=== PATIENT | male | born 1940 | race Caucasian/White ===

== ENCOUNTER 2018-04-09 10:27 | Inpatient (IN) | payer MEDICARE, OTHER ==
[~2018-04-09] VITALS: Ht 177.8 cm; Wt 92.6 kg
[~2018-04-09 10:27] MED LIST: HYDR-3237 PO; LANS30CA60 PO; LORA10TA75 PO; LORA1TAB PO
[2018-04-09] MEDS ORDERED: IBUP100T7 PO (10:46)
[2018-04-09] MEDS ORDERED: ACET325C5 PO (10:46)
[2018-04-09] MEDS ORDERED: MELA1TAB35 PO (10:46)
[2018-04-09] MEDS ORDERED: DICL50TA2 PO (10:47)
[2018-04-09] MEDS ORDERED: SODIUM CHLORIDE FLUSH 10ML SYR IVF ONE ×2 (11:30→13:30)
[2018-04-09 11:51] LABS: CHLORIDE 105 mmol/L (98-107)
[2018-04-09 11:52] LABS: ALANINE AMINOTRANSFERASE 68 U/L (12-78); ALBUMIN 3.6 g/dL (3.4-5.0); ANION GAP 7 mmol/L (5-15); CALCIUM 8.8 mg/dL (8.5-10.1); CREATININE 2.26 mg/dL (0.7-1.3)
[2018-04-09 11:54] LABS: ALKALINE PHOSPHATASE 450 U/L (45-117); BILIRUBIN,TOTAL 0.9 mg/dL (0.2-1.0); TOTAL PROTEIN 8.2 g/dL (6.4-8.2)
[2018-04-09 12:40] LABS: MEAN CORPUSCULAR HEMOGLOBIN 20.9 pg (27.5-34.5); MEAN CORPUSCULAR HGB CONC 30.7 g/dL (33.2-36.2); MEAN CORPUSCULAR VOLUME 68.2 fL (81-97); MEAN PLATELET VOLUME 8.1 fL (7.4-10.4); PLATELET COUNT 309 x10^3/uL (130-400); RED BLOOD COUNT 5.98 x10^6/uL (4.38-5.82)
[2018-04-09 12:51] LABS: MICROSCOPIC INDICATED
[2018-04-09 12:54] LABS: CULTURE INDICATED? YES
[2018-04-09 13:10] LABS: BASOPHILS # (AUTO) 0.06 x10^3/uL (0-0.1); BASOPHILS % (AUTO) 0 % (0-1); EOSINOPHILS # (AUTO) 0.29 x10^3/uL (0-0.4); EOSINOPHILS % (AUTO) 2 % (1-7); LYMPHOCYTES # (AUTO) 4.42 x10^3/uL (1-3.4); LYMPHOCYTES % (AUTO) 27 % (22-44); MD MORPH REVIEW ONLY; MONOCYTES # (AUTO) 1.08 x10^3/uL (0.2-0.8); MONOCYTES % (AUTO) 7 % (2-9); NEUTROPHILS # (AUTO) 10.54 x10^3/uL (1.8-6.8); NEUTROPHILS % (AUTO) 64 % (42-75)
[2018-04-09 13:11] LABS: ANISOCYTOSIS 2+; MICROCYTOSIS 1+
[2018-04-09 13:12] LABS: <PLATELET ESTIMATE> INCREASED; HYPOCHROMIA 1+; OVALOCYTES 1+; POLYCHROMASIA 1+
[2018-04-09 13:13] LABS: <PLT MORPHOLOGY> NORMAL PLT MORPH
[2018-04-09] MEDS ORDERED: ONDANSETRON ODT 4 MG ONE (13:13)
[2018-04-09] MEDS ORDERED: MORPHINE SULFATE 4 MG/ML, 1ML ONE ×2 (13:13→14:22)
[2018-04-09] MEDS: MORPHINE SULFATE 4 MG/ML, 1ML IVPush PRN ×2 (13:16→14:25)
[2018-04-09] MEDS ORDERED: ONDANSETRON ODT 4 MG PO ONE (13:30)
[2018-04-09] MEDS ORDERED: SODIUM CHLORIDE 0.9% 1,000ML IVBOLUS ONE (13:30)
[2018-04-09] MEDS ORDERED: PANTOPRAZOLE 40 MG IV ONE (14:40)
[2018-04-09] MEDS ORDERED: PANTOPRAZOLE 40 MG IV IVP ONE (15:00)
[2018-04-09] MEDS: METRONIDAZOLE PMX 500MG/100ML 100 ML IV SCH ×2 (15:30→22:45)
[2018-04-09] MEDS: CEFTRIAXONE 1,000 MG in SODIUM CHLORIDE 0.9% 50 ML IV SCH (15:30)
[2018-04-09] MEDS: PANTOPRAZOLE 80 MG in SODIUM CHLORIDE 0.9% 100 ML IV SCH (16:30)
[2018-04-09] MEDS ORDERED: hydrALAzine 20 MG/ML, 1ML IVPush PRN (16:30)
[2018-04-09] MEDS ORDERED: ONDANSETRON 2MG/ML, 2ML IVPush PRN (16:30)
[2018-04-09] MEDS ORDERED: morphine SULFATE 10 MG/ML, 1ML IVPush PRN (16:30)
[2018-04-09 18:07] VITALS: BP 102/69
[2018-04-09 19:53] VITALS: BP 95/62
[2018-04-09] MEDS: SODIUM CHLORIDE 0.9% 1,000 ML IV SCH (20:30)
[2018-04-10 00:01] VITALS: BP 152/81
[2018-04-10] MEDS: PANTOPRAZOLE 80 MG in SODIUM CHLORIDE 0.9% 100 ML IV SCH ×3 (02:35→23:55)
[2018-04-10 05:16] LABS: ALANINE AMINOTRANSFERASE 125 U/L (12-78); ALBUMIN 3.1 g/dL (3.4-5.0); ANION GAP 8 mmol/L (5-15); CALCIUM 7.9 mg/dL (8.5-10.1); CHLORIDE 107 mmol/L (98-107)
[2018-04-10 05:18] LABS: ALKALINE PHOSPHATASE 425 U/L (45-117); BILIRUBIN,TOTAL 0.9 mg/dL (0.2-1.0); TOTAL PROTEIN 6.9 g/dL (6.4-8.2)
[2018-04-10 05:21] LABS: BASOPHILS # (AUTO) 0.04 x10^3/uL (0-0.1); BASOPHILS % (AUTO) 0 % (0-1); EOSINOPHILS # (AUTO) 0.06 x10^3/uL (0-0.4); EOSINOPHILS % (AUTO) 0 % (1-7); LYMPHOCYTES # (AUTO) 4.16 x10^3/uL (1-3.4); LYMPHOCYTES % (AUTO) 30 % (22-44); MD NO; MEAN CORPUSCULAR HEMOGLOBIN 21.1 pg (27.5-34.5); MEAN CORPUSCULAR HGB CONC 30.7 g/dL (33.2-36.2); MEAN CORPUSCULAR VOLUME 68.7 fL (81-97); MEAN PLATELET VOLUME 8.1 fL (7.4-10.4); MONOCYTES # (AUTO) 1.17 x10^3/uL (0.2-0.8); MONOCYTES % (AUTO) 8 % (2-9); NEUTROPHILS % (AUTO) 61 % (42-75); PLATELET COUNT 275 x10^3/uL (130-400); RED BLOOD COUNT 5.09 x10^6/uL (4.38-5.82); RED CELL DISTRIBUTION WIDTH 21.9 % (9.4-14.8)
[2018-04-10] MEDS: METRONIDAZOLE PMX 500MG/100ML 100 ML IV SCH ×3 (07:30→22:59)
[2018-04-10] MEDS ORDERED: MIDAZOLAM 1 MG/ML, 2ML ONE (09:18)
[2018-04-10] MEDS ORDERED: FENTANYL PF 100 MCG/2ML ONE ×2 (09:18→10:13)
[2018-04-10] MEDS ORDERED: PROPOFOL 10 MG/ML, 20ML ONE (09:24)
[2018-04-10] MEDS ORDERED: GLYCOPYRROLATE 0.2MG/1ML, 5ML ONE (09:24)
[2018-04-10] MEDS ORDERED: NEOSTIGMINE 1 MG/ML, 10ML ONE (09:24)
[2018-04-10] MEDS ORDERED: ROCURONIUM 10 MG/ML,10ML ONE (09:24)
[2018-04-10] MEDS ORDERED: SUCCINYLCHOLINE 20 MG/ML, 10ML ONE (09:24)
[2018-04-10] MEDS: FENTANYL PF 100 MCG/2ML IV PRN ×2 (10:20→10:25)
[2018-04-10] MEDS ORDERED: EPHEDRINE 50 MG/ML, 1ML IVPush PRN (10:30)
[2018-04-10] MEDS ORDERED: PROMETHAZINE 12.5 MG SUPP PR PRN (10:30)
[2018-04-10] MEDS ORDERED: OXYcodone 5 MG/5 ML ORAL.SOL UDC PO PRN (10:30)
[2018-04-10] MEDS ORDERED: PROMETHAZINE 25 MG/ML, 1ML IV PRN (10:30)
[2018-04-10] MEDS ORDERED: ACETAMINOPHEN 325 MG TABLET PO PRN (10:30)
[2018-04-10] MEDS ORDERED: ALBUTEROL SULFATE 2.5 MG/3 ML NPPB PRN (10:30)
[2018-04-10] MEDS ORDERED: LABETALOL 5MG/ML, 20ML IV PRN (10:30)
[2018-04-10] MEDS ORDERED: MORPHINE SULFATE 4 MG/ML, 1ML IVPush PRN (10:30)
[2018-04-10] MEDS ORDERED: KETOROLAC 30 MG/1 ML IV PRN (10:30)
[2018-04-10] MEDS ORDERED: hydrALAzine 20 MG/ML, 1ML IV PRN (10:30)
[2018-04-10] MEDS ORDERED: ONDANSETRON 2MG/ML, 2ML IV PRN (10:30)
[2018-04-10] MEDS ORDERED: LORazepam 2 MG/ML, 1ML IVPush PRN ×2 (10:30→17:00)
[2018-04-10] MEDS ORDERED: MEPERIDINE/PF 25MG/0.5ML IVPush PRN (10:30)
[2018-04-10] MEDS ORDERED: MIDAZOLAM 1 MG/ML, 2ML IV PRN (10:30)
[2018-04-10] MEDS ORDERED: ONDANSETRON ODT 8 MG PO PRN (10:30)
[2018-04-10] MEDS ORDERED: HYDROmorphone 2 MG/ML, 1ML ONE (10:32)
[2018-04-10] MEDS: HYDROmorphone 1 MG/ML, 1ML IV PRN (10:34)
[2018-04-10 11:09] VITALS: BP 110/73
[2018-04-10 12:19] VITALS: BP 124/78
[2018-04-10] MEDS: SODIUM CHLORIDE 0.9% 1,000 ML IV SCH (14:11)
[2018-04-10] MEDS: CEFTRIAXONE 1,000 MG in SODIUM CHLORIDE 0.9% 50 ML IV SCH (18:00)
[2018-04-10 19:10] VITALS: BP 130/78
[2018-04-11 02:14] VITALS: BP 118/86
[2018-04-11 05:54] LABS: BASOPHILS # (AUTO) 0.05 x10^3/uL (0-0.1); BASOPHILS % (AUTO) 0 % (0-1); EOSINOPHILS # (AUTO) 0.07 x10^3/uL (0-0.4); EOSINOPHILS % (AUTO) 0 % (1-7); LYMPHOCYTES # (AUTO) 4.79 x10^3/uL (1-3.4); LYMPHOCYTES % (AUTO) 29 % (22-44); MD NO; MEAN CORPUSCULAR HEMOGLOBIN 21.5 pg (27.5-34.5); MEAN CORPUSCULAR VOLUME 69.2 fL (81-97); MEAN PLATELET VOLUME 8.1 fL (7.4-10.4); MONOCYTES # (AUTO) 1.37 x10^3/uL (0.2-0.8); MONOCYTES % (AUTO) 8 % (2-9); NEUTROPHILS # (AUTO) 9.99 x10^3/uL (1.8-6.8); NEUTROPHILS % (AUTO) 61 % (42-75); PLATELET COUNT 305 x10^3/uL (130-400); RED BLOOD COUNT 5.09 x10^6/uL (4.38-5.82); RED CELL DISTRIBUTION WIDTH 21.6 % (9.4-14.8)
[2018-04-11 06:24] LABS: CHLORIDE 103 mmol/L (98-107)
[2018-04-11 06:37] LABS: ALANINE AMINOTRANSFERASE 85 U/L (12-78); ALBUMIN 3.1 g/dL (3.4-5.0); ALKALINE PHOSPHATASE 371 U/L (45-117); BILIRUBIN,TOTAL 0.8 mg/dL (0.2-1.0); CREATININE 1.81 mg/dL (0.7-1.3); TOTAL PROTEIN 7.1 g/dL (6.4-8.2)
[2018-04-11 06:42] LABS: ANION GAP 12 mmol/L (5-15)
[2018-04-11] MEDS ORDERED: PHARMACOKINETIC MONITORING MC PRN (08:00)
[2018-04-11] MEDS ORDERED: HALOPERIDOL 5 MG/ML IM PRN (08:00)
[2018-04-11] MEDS ORDERED: POTASSIUM PHOSPHATE 22 MEQ in SODIUM CHLORIDE 0.9% 500 ML IV ONE (08:00)
[2018-04-11] MEDS ORDERED: VANCOMYCIN PER PHARMACY MC SCH (08:00)
[2018-04-11] MEDS ORDERED: PHARMACOKINETIC CONSULTATION MC ONE (08:00)
[2018-04-11] MEDS: SODIUM CHLORIDE 0.9% 1,000 ML IV SCH ×2 (08:30→18:15)
[2018-04-11] MEDS: METRONIDAZOLE PMX 500MG/100ML 100 ML IV SCH ×2 (08:30→18:15)
[2018-04-11] MEDS ORDERED: VANCOMYCIN PMX 1GM/200ML 200 ML IV SCH (09:00)
[2018-04-11] MEDS: TAMSULOSIN 0.4 MG CAP.ER.24H PO SCH (09:00)
[2018-04-11] MEDS: VANCOMYCIN 1,500 MG in SODIUM CHLORIDE 0.9% 250 ML IV SCH (10:00)
[2018-04-11] MEDS ORDERED: BUPIVACAINE/PF-EPI 0.5% 1:200K ONE (10:28)
[2018-04-11 10:51] VITALS: BP 140/65
[2018-04-11] MEDS ORDERED: PROMETHAZINE 12.5 MG SUPP PR PRN (12:30)
[2018-04-11] MEDS ORDERED: OXYcodone 5 MG/5 ML ORAL.SOL UDC PO PRN (12:30)
[2018-04-11] MEDS ORDERED: hydrALAzine 20 MG/ML, 1ML IV PRN (12:30)
[2018-04-11] MEDS ORDERED: MORPHINE SULFATE 4 MG/ML, 1ML IVPush PRN (12:30)
[2018-04-11] MEDS ORDERED: FENTANYL PF 100 MCG/2ML IV PRN (12:30)
[2018-04-11] MEDS ORDERED: ONDANSETRON 2MG/ML, 2ML IV PRN (12:30)
[2018-04-11] MEDS ORDERED: LABETALOL 5MG/ML, 20ML IV PRN (12:30)
[2018-04-11] MEDS ORDERED: FENTANYL PF 250 MCG/5ML ONE (12:40)
[2018-04-11] MEDS ORDERED: DEXAMETHASONE 4 MG/ML, 1ML ONE (13:14)
[2018-04-11] MEDS ORDERED: PROPOFOL 10 MG/ML, 20ML ONE (13:45)
[2018-04-11] MEDS ORDERED: ROCURONIUM 10MG/ML,5ML ONE (13:46)
[2018-04-11] MEDS ORDERED: ONDANSETRON 2MG/ML, 2ML ONE (13:46)
[2018-04-11] MEDS ORDERED: SUCCINYLCHOLINE 20 MG/ML, 10ML ONE (13:46)
[2018-04-11] MEDS ORDERED: FENTANYL PF 100 MCG/2ML ONE ×2 (14:09→14:41)
[2018-04-11] MEDS ORDERED: ACETAMINOPHEN 650 MG/20.3 ML UDC ONE (14:09)
[2018-04-11] MEDS ORDERED: OXYcodone 5 MG/5 ML ORAL.SOL UDC ONE (14:10)
[2018-04-11] MEDS: FENTANYL PF 100 MCG/2ML IV PRN ×4 (14:14→15:24)
[2018-04-11] MEDS ORDERED: HYDROmorphone 2 MG/ML, 1ML ONE (14:20)
[2018-04-11] MEDS: HYDROmorphone 1 MG/ML, 1ML IV PRN ×4 (14:25→14:50)
[2018-04-11] MEDS: CEFTRIAXONE 1,000 MG in SODIUM CHLORIDE 0.9% 50 ML IV SCH (17:31)
[2018-04-11] MEDS: ACETAMINOPHEN 500 MG TABLET PO SCH (20:10)
[2018-04-11] MEDS: HYDROcodone/APAP 5/325 TABLET PO PRN (20:11)
[2018-04-11] MEDS: IBUPROFEN 200 MG TABLET PO SCH (20:11)
[2018-04-11 20:53] VITALS: BP 123/73
[2018-04-11] MEDS: PANTOPRAZOLE 80 MG in SODIUM CHLORIDE 0.9% 100 ML IV SCH (22:43)
[2018-04-12] VITALS: BP_SYST 171; BP_SYST 84; BP_DIAS 51; BP_DIAS 72
[2018-04-12] MEDS: HYDROcodone/APAP 5/325 TABLET PO PRN ×5 (00:17→19:55)
[2018-04-12 00:21] VITALS: BP 109/60
[2018-04-12] MEDS: METRONIDAZOLE PMX 500MG/100ML 100 ML IV SCH ×4 (02:17→21:14)
[2018-04-12 03:43] VITALS: BP 102/64
[2018-04-12] MEDS: SODIUM CHLORIDE 0.9% 1,000 ML IV SCH ×2 (05:18→13:45)
[2018-04-12 05:51] LABS: MEAN CORPUSCULAR HEMOGLOBIN 21.5 pg (27.5-34.5); MEAN CORPUSCULAR HGB CONC 30.9 g/dL (33.2-36.2); MEAN CORPUSCULAR VOLUME 69.7 fL (81-97); MEAN PLATELET VOLUME 8.1 fL (7.4-10.4); PLATELET COUNT 328 x10^3/uL (130-400); RED BLOOD COUNT 4.87 x10^6/uL (4.38-5.82); RED CELL DISTRIBUTION WIDTH 21.4 % (9.4-14.8)
[2018-04-12 05:52] LABS: ALANINE AMINOTRANSFERASE 80 U/L (12-78); ALBUMIN 2.9 g/dL (3.4-5.0); ANION GAP 10 mmol/L (5-15); CALCIUM 8.1 mg/dL (8.5-10.1); CHLORIDE 108 mmol/L (98-107); CREATININE 1.58 mg/dL (0.7-1.3)
[2018-04-12 05:54] LABS: ALKALINE PHOSPHATASE 378 U/L (45-117); BILIRUBIN,TOTAL 0.6 mg/dL (0.2-1.0); TOTAL PROTEIN 6.8 g/dL (6.4-8.2)
[2018-04-12 06:44] LABS: BASOPHILS % (AUTO) 0 % (0-1); EOSINOPHILS % (AUTO) 0 % (1-7); LYMPHOCYTES # (AUTO) 2.04 x10^3/uL (1-3.4); LYMPHOCYTES % (AUTO) 10 % (22-44); MD SCAN; MONOCYTES # (AUTO) 1.39 x10^3/uL (0.2-0.8); MONOCYTES % (AUTO) 7 % (2-9); NEUTROPHILS # (AUTO) 17.78 x10^3/uL (1.8-6.8); NEUTROPHILS % (AUTO) 84 % (42-75)
[2018-04-12 07:09] VITALS: BP 104/65
[2018-04-12] MEDS: VANCOMYCIN 1,500 MG in SODIUM CHLORIDE 0.9% 250 ML IV SCH (08:35)
[2018-04-12] MEDS: TAMSULOSIN 0.4 MG CAP.ER.24H PO SCH (08:42)
[2018-04-12] MEDS: IBUPROFEN 200 MG TABLET PO SCH (08:42)
[2018-04-12] MEDS: DICLOFENAC 50 MG TABLET.DR PO SCH (08:42)
[2018-04-12] MEDS: LORATADINE 10 MG TABLET PO SCH (08:42)
[2018-04-12] MEDS: ACETAMINOPHEN 500 MG TABLET PO SCH ×3 (08:42→20:09)
[2018-04-12] MEDS: PANTOPRAZOLE 80 MG in SODIUM CHLORIDE 0.9% 100 ML IV SCH ×3 (08:45→22:45)
[2018-04-12] MEDS ORDERED: CEFD300C37 PO (09:27)
[2018-04-12] MEDS ORDERED: TAMS-11 PO (09:27)
[2018-04-12] MEDS ORDERED: ACET500T71 PO (09:27)
[2018-04-12] MEDS ORDERED: LANS30CA60 PO (09:27)
[2018-04-12] MEDS ORDERED: HYDR-3240 PO (09:27)
[2018-04-12] MEDS ORDERED: SUCR1ORA5 PO (09:27)
[2018-04-12] MEDS ORDERED: POLY17PO5 PO (09:28)
[2018-04-12] MEDS ORDERED: PHARMACY INSTRUCTION MC SCH (12:00)
[2018-04-12] MEDS ORDERED: ERTAPENEM 1 GM in SODIUM CHLORIDE 0.9% 50 ML IV SCH (12:00)
[2018-04-12 13:00] VITALS: BP 101/64
[2018-04-12] MEDS ORDERED: ONDANSETRON ODT 4 MG ONE (14:50)
[2018-04-12] MEDS ORDERED: ONDANSETRON ODT 4 MG PO PRN (15:00)
[2018-04-12] MEDS ORDERED: POTASSIUM PHOSPHATE 44 MEQ in SODIUM CHLORIDE 0.9% 500 ML IV ONE (16:30)
[2018-04-12 19:19] VITALS: BP 100/62
[2018-04-13] MEDS: HYDROcodone/APAP 5/325 TABLET PO PRN ×2 (01:19→07:52)
[2018-04-13 01:43] VITALS: BP 98/58
[2018-04-13] MEDS: METRONIDAZOLE PMX 500MG/100ML 100 ML IV SCH (05:11)
[2018-04-13 05:16] LABS: BASOPHILS # (AUTO) 0.09 x10^3/uL (0-0.1); BASOPHILS % (AUTO) 1 % (0-1); EOSINOPHILS # (AUTO) 0.03 x10^3/uL (0-0.4); EOSINOPHILS % (AUTO) 0 % (1-7); LYMPHOCYTES # (AUTO) 2.99 x10^3/uL (1-3.4); LYMPHOCYTES % (AUTO) 17 % (22-44); MD NO; MEAN CORPUSCULAR HEMOGLOBIN 21.1 pg (27.5-34.5); MEAN CORPUSCULAR HGB CONC 30.7 g/dL (33.2-36.2); MEAN CORPUSCULAR VOLUME 68.8 fL (81-97); MEAN PLATELET VOLUME 8.1 fL (7.4-10.4); MONOCYTES # (AUTO) 1.14 x10^3/uL (0.2-0.8); MONOCYTES % (AUTO) 7 % (2-9); NEUTROPHILS # (AUTO) 13.05 x10^3/uL (1.8-6.8); NEUTROPHILS % (AUTO) 76 % (42-75); PLATELET COUNT 322 x10^3/uL (130-400); RED BLOOD COUNT 4.54 x10^6/uL (4.38-5.82); RED CELL DISTRIBUTION WIDTH 21.9 % (9.4-14.8)
[2018-04-13 05:22] LABS: ALANINE AMINOTRANSFERASE 55 U/L (12-78); ALBUMIN 2.5 g/dL (3.4-5.0); ANION GAP 3 mmol/L (5-15); CALCIUM 7.7 mg/dL (8.5-10.1); CHLORIDE 110 mmol/L (98-107); CREATININE 1.39 mg/dL (0.7-1.3)
[2018-04-13 05:24] LABS: ALKALINE PHOSPHATASE 276 U/L (45-117); BILIRUBIN,TOTAL 0.5 mg/dL (0.2-1.0); TOTAL PROTEIN 6.2 g/dL (6.4-8.2)
[2018-04-13 07:10] VITALS: BP 116/71
[2018-04-13] MEDS: TAMSULOSIN 0.4 MG CAP.ER.24H PO SCH (07:52)
[2018-04-13] MEDS: LORATADINE 10 MG TABLET PO SCH (07:52)
[2018-04-13] MEDS: ACETAMINOPHEN 500 MG TABLET PO SCH (07:52)
[2018-04-13] MEDS: DICLOFENAC 50 MG TABLET.DR PO SCH (07:52)
[2018-04-13] MEDS: SODIUM CHLORIDE 0.9% 1,000 ML IV SCH (08:00)
[2018-04-13] MEDS: PANTOPRAZOLE 80 MG in SODIUM CHLORIDE 0.9% 100 ML IV SCH (08:00)
[2018-04-13] MEDS ORDERED: HYDR-3237 PO (08:49)
[2018-04-13] MEDS ORDERED: VANCOMYCIN 1,500 MG in SODIUM CHLORIDE 0.9% 250 ML IV SCH (20:00)
== END 2018-04-13 09:40 | disposition home or self-care (01) | DRG 853 ==
LOC: ED 13:49 → EDIP 14:40 → 3NE 17:43 → 4NOR 04-11 15:28
PROVIDERS: ADMIT Hospitalist; ATTEND Internal Medicine
PROC: BF131ZZ Fluoroscopy of Gallbladder and Bile Ducts using Low Osmolar Contrast (ICD-10-PCS; 2018-04-10)
PROC: 0FC98ZZ Extirpation of Matter from Common Bile Duct, Via Natural or Artificial Opening Endoscopic (ICD-10-PCS; 2018-04-10)
PROC: 0F798ZZ Dilation of Common Bile Duct, Via Natural or Artificial Opening Endoscopic (ICD-10-PCS; principal; 2018-04-10 08:30)
PROC: 0FT44ZZ Resection of Gallbladder, Percutaneous Endoscopic Approach (ICD-10-PCS; 2018-04-11)
DX: A41.9 Sepsis, unspecified organism (principal); G93.40 Encephalopathy, unspecified; N17.0 Acute kidney failure with tubular necrosis; K80.62 Calculus of gallbladder and bile duct with acute cholecystitis without obstruction; N39.0 Urinary tract infection, site not specified; K29.80 Duodenitis without bleeding; E83.39 Other disorders of phosphorus metabolism; K21.9 Gastro-esophageal reflux disease without esophagitis; G89.29 Other chronic pain; M54.9 Dorsalgia, unspecified; K44.9 Diaphragmatic hernia without obstruction or gangrene; K66.0 Peritoneal adhesions (postprocedural) (postinfection); M51.36 Other intervertebral disc degeneration, lumbar region; N40.0 Benign prostatic hyperplasia without lower urinary tract symptoms; Z80.1 Family history of malignant neoplasm of trachea, bronchus and lung; Z82.49 Family history of ischemic heart disease and other diseases of the circulatory system; K57.90 Diverticulosis of intestine, part unspecified, without perforation or abscess without bleeding
CPT/HCPCS: 36415; 74176; 74181; 74328; 76700; 80053; 81001; 82977; 83605; 83690; 83735; 84075; 84080; 84100; 84443; 85025; 87040; 87086; 88304; 93005; 93975; 96361; 96374; 96375; 96376; 99285; G0378; J0696; J1100; J1170; J1335; J2250; J2405; J2704; J2710; J3010; J3370; J3490; Q0162; C9113; J0330; J2060; J7030; J7040; J7050

== ENCOUNTER → 2020-03-18 | Outpatient (CLI) | payer MEDICARE, OTHER ==
[~2020-03-18] MED LIST changes: +ACET325C6 PO; +ACET500T64 PO; +CEFD300C37 PO; +DICL50TA2 PO; +HYDR-3240 PO; +IBUP100T7 PO; +MELA1TAB35 PO; +POLY17PO5 PO; +SUCR1ORA5 PO; +TAMS-11 PO
== END | disposition home or self-care (01) ==
LOC: STAR 13:57
PROVIDERS: ATTEND Anesthesiology
DX: Z01.818 Encounter for other preprocedural examination (principal); Z11.59 Encounter for screening for other viral diseases
CPT/HCPCS: 36415; 87635

== ENCOUNTER 2020-03-23 08:04 | Day surgery (SDC) | payer MEDICARE, OTHER ==
[2020-03-22 15:21] LABS: BASOPHILS # (AUTO) 0.03 x10^3/uL (0-0.1); BASOPHILS % (AUTO) 0 % (0-1); EOSINOPHILS # (AUTO) 0.09 x10^3/uL (0-0.4); EOSINOPHILS % (AUTO) 1 % (1-7); LYMPHOCYTES % (AUTO) 28 % (22-44); MD NO; MEAN CORPUSCULAR HEMOGLOBIN 28.9 pg (27.5-34.5); MEAN CORPUSCULAR VOLUME 87.7 fL (81-97); MEAN PLATELET VOLUME 7.5 fL (7.4-10.4); MONOCYTES # (AUTO) 0.71 x10^3/uL (0.2-0.8); MONOCYTES % (AUTO) 9 % (2-9); NEUTROPHILS # (AUTO) 4.79 x10^3/uL (1.8-6.8); NEUTROPHILS % (AUTO) 61 % (42-75); PLATELET COUNT 222 x10^3/uL (130-400); RED CELL DISTRIBUTION WIDTH 15.2 % (9.4-14.8)
[2020-03-22 15:30] LABS: ALANINE AMINOTRANSFERASE 16 U/L (12-78); ALBUMIN 3.9 g/dL (3.4-5.0); CALCIUM 9.2 mg/dL (8.5-10.1); CREATININE 1.45 mg/dL (0.7-1.3)
[2020-03-22 15:33] LABS: ALKALINE PHOSPHATASE 121 U/L (45-117); BILIRUBIN,TOTAL 0.4 mg/dL (0.2-1.0); TOTAL PROTEIN 7.8 g/dL (6.4-8.2)
[2020-03-22 15:42] LABS: ANION GAP 4 mmol/L (5-15); CHLORIDE 107 mmol/L (98-107)
[2020-03-22 16:13] LABS: PROTHROMBIN TIME 10.3 Seconds (9.6-11.5)
[~2020-03-23] VITALS: Ht 175.3 cm; Wt 89.0 kg
[~2020-03-23 08:04] MED LIST changes: +OMEP20TA62 PO; +OXYC5CAP2 PO
[2020-03-23] MEDS ORDERED: OXYcodone IR 5MG TABLET PO PRN (08:30)
[2020-03-23] MEDS ORDERED: MAGNESIUM HYDROXIDE 8%, 30ML UDC PO PRN (08:30)
[2020-03-23] MEDS ORDERED: HYDROcodone/APAP 5/325 TABLET PO PRN (08:30)
[2020-03-23] MEDS ORDERED: ONDANSETRON 2MG/ML, 2ML IV PRN (08:30)
[2020-03-23] MEDS ORDERED: SENNA/DOCUSATE TABLET PO PRN (08:30)
[2020-03-23] MEDS ORDERED: ZOLPIDEM 5MG TABLET PO PRN (08:30)
[2020-03-23] MEDS ORDERED: BISACODYL 10 MG SUPP PR PRN (08:30)
[2020-03-23] MEDS ORDERED: ONDANSETRON 4 MG TABLET PO PRN (08:30)
[2020-03-23] MEDS ORDERED: DIPHENHYDRAMINE 25 MG CAPSULE PO PRN (08:30)
[2020-03-23] MEDS ORDERED: ACETAMINOPHEN 650 MG/20.3 ML UDC PO PRN (08:30)
[2020-03-23] MEDS ORDERED: ACETAMINOPHEN 500 MG TABLET PO STA (08:37)
[2020-03-23] MEDS ORDERED: GABAPENTIN 300 MG CAPSULE PO STA (08:37)
[2020-03-23] MEDS ORDERED: CHLORHEXIDINE 15 ML UDC MM STA (08:38)
[2020-03-23] MEDS ORDERED: LACTATED RINGERS 1,000 ML IV SCH (08:38)
[2020-03-23] MEDS ORDERED: FENTANYL PF 250 MCG/5ML ONE (08:57)
[2020-03-23] MEDS ORDERED: LORATADINE 10 MG TABLET PO SCH (09:00)
[2020-03-23] MEDS ORDERED: DOCUSATE 100 MG CAPSULE PO SCH (09:00)
[2020-03-23] MEDS ORDERED: TAMSULOSIN 0.4 MG CAP.ER.24H PO SCH (09:00)
[2020-03-23] MEDS ORDERED: OMEPRAZOLE 20 MG CAPSULE.DR PO SCH (09:00)
[2020-03-23] MEDS ORDERED: TRANEXAMIC ACID 100 MG/ML, 10ML ONE ×2 (09:07)
[2020-03-23] MEDS ORDERED: KETOROLAC 60 MG/2 ML ONE (09:07)
[2020-03-23] MEDS ORDERED: ROPIvacaine/PF 0.5%, 20 ML ONE (09:07)
[2020-03-23] MEDS ORDERED: ROPIvacaine/PF 0.5%, 30 ML ONE (09:08)
[2020-03-23] MEDS ORDERED: SODIUM CHLORIDE 0.9% 50 ML ONE (09:08)
[2020-03-23] MEDS ORDERED: VANCOMYCIN 1,000 MG ONE (09:08)
[2020-03-23] MEDS ORDERED: EPINEPHRINE 1 MG/ML, 1ML ONE (09:08)
[2020-03-23] MEDS ORDERED: LIDOCAINE 2%, 10ML ONE (09:57)
[2020-03-23] MEDS ORDERED: ONDANSETRON 2MG/ML, 2ML IVPush PRN (10:00)
[2020-03-23] MEDS ORDERED: METHOCARBAMOL 1,000 MG in DEXTROSE 5% 100 ML IV PRN (10:00)
[2020-03-23] MEDS ORDERED: LABETALOL 5MG/ML, 20ML IV PRN (10:00)
[2020-03-23] MEDS ORDERED: OXYcodone 5 MG/5 ML ORAL.SOL UDC PO PRN (10:00)
[2020-03-23] MEDS ORDERED: hydrALAzine 20 MG/ML, 1ML IV PRN (10:00)
[2020-03-23] MEDS ORDERED: PROMETHAZINE 25 MG/ML, 1ML IVPush PRN (10:00)
[2020-03-23] MEDS ORDERED: PROMETHAZINE 25 MG SUPP PR PRN (10:00)
[2020-03-23] MEDS ORDERED: FENTANYL PF 100 MCG/2ML IV PRN (10:00)
[2020-03-23] MEDS ORDERED: DEXAMETHASONE 4 MG/ML, 1ML ONE (10:55)
[2020-03-23] MEDS ORDERED: ONDANSETRON 2MG/ML, 2ML ONE (10:55)
[2020-03-23] MEDS ORDERED: CEFAZOLIN 1,000 MG ONE (10:55)
[2020-03-23] MEDS ORDERED: GLYCOPYRROLATE 0.2MG/1ML, 5ML ONE (10:55)
[2020-03-23] MEDS ORDERED: NEOSTIGMINE 1 MG/ML, 10ML ONE (10:55)
[2020-03-23] MEDS ORDERED: ROCURONIUM 10MG/ML,5ML ONE (10:55)
[2020-03-23] MEDS ORDERED: SUCCINYLCHOLINE 20 MG/ML, 10ML ONE (10:55)
[2020-03-23] MEDS ORDERED: PROPOFOL 10 MG/ML, 20ML ONE (10:55)
[2020-03-23] MEDS ORDERED: OXYcodone 5 MG/5 ML ORAL.SOL UDC ONE (11:13)
[2020-03-23] MEDS ORDERED: HYDROmorphone 1 MG/ML, 1ML INJ ONE ×2 (11:13→11:38)
[2020-03-23] MEDS: HYDROmorphone 1 MG/ML, 1ML INJ IVPush PRN ×3 (11:15→11:45)
[2020-03-23 12:30] VITALS: BP 110/68
[2020-03-23] MEDS ORDERED: NS + 20MEQ KCL 1,000 ML IV SCH (12:51)
[2020-03-23] MEDS ORDERED: ASPIRIN 81 MG TABLET EC PO SCH (18:00)
[2020-03-23 18:26] VITALS: BP 106/60
[2020-03-23] MEDS ORDERED: CEFAZOLIN PMX 2GM/50ML 50 ML IVPB SCH (18:30)
[2020-03-24] MEDS ORDERED: DEXAMETHASONE 4 MG/ML, 1ML IVPush SCH (06:00)
[2020-03-24] MEDS ORDERED: TRAZ150T62 PO (20:21)
[2020-03-24] MEDS ORDERED: MIRA25TA PO (20:22)
== END 2020-03-23 18:45 | disposition home or self-care (01) ==
LOC: OUT 08:04 → 3WST 12:42 → OUT 18:45
PROVIDERS: ATTEND Orthopaedic Surgery
DX: M16.11 Unilateral primary osteoarthritis, right hip (principal); M25.751 Osteophyte, right hip; M25.851 Other specified joint disorders, right hip; M25.852 Other specified joint disorders, left hip; K21.9 Gastro-esophageal reflux disease without esophagitis; Z79.01 Long term (current) use of anticoagulants; Z79.891 Long term (current) use of opiate analgesic; Z79.899 Other long term (current) drug therapy; Z98.1 Arthrodesis status; Z98.890 Other specified postprocedural states
CPT/HCPCS: 27130; 36415; 72170; 73501; 76000; 80053; 83036; 85025; 85610; 85730; 87081; 93005; 97162; C1713; C1776; J0171; J0330; J0690; J1100; J1170; J1885; J2001; J2405; J2704; J2710; J2795; J2800; J3010; J3370; J3480; J7120; G0378

== ENCOUNTER 2020-03-24 20:08 | Observation (INO) | payer MEDICARE, OTHER ==
[~2020-03-24] VITALS: Ht 175.3 cm; Wt 87.0 kg
[2020-03-24] MEDS ORDERED: TRAZ150T62 PO (20:21)
[2020-03-24] MEDS ORDERED: MIRA25TA PO (20:22)
[2020-03-24] MEDS ORDERED: SODIUM CHLORIDE FLUSH 10ML SYR IVF ONE (21:00)
[2020-03-24 21:24] LABS: BASOPHILS # (AUTO) 0.06 x10^3/uL (0-0.1); BASOPHILS % (AUTO) 1 % (0-1); EOSINOPHILS # (AUTO) 0.02 x10^3/uL (0-0.4); EOSINOPHILS % (AUTO) 0 % (1-7); LYMPHOCYTES # (AUTO) 1.36 x10^3/uL (1-3.4); LYMPHOCYTES % (AUTO) 13 % (22-44); MD NO; MEAN CORPUSCULAR HEMOGLOBIN 28.8 pg (27.5-34.5); MEAN CORPUSCULAR HGB CONC 32.4 g/dL (33.2-36.2); MEAN CORPUSCULAR VOLUME 88.8 fL (81-97); MEAN PLATELET VOLUME 7.3 fL (7.4-10.4); MONOCYTES # (AUTO) 0.98 x10^3/uL (0.2-0.8); MONOCYTES % (AUTO) 9 % (2-9); NEUTROPHILS # (AUTO) 8.22 x10^3/uL (1.8-6.8); NEUTROPHILS % (AUTO) 77 % (42-75); PLATELET COUNT 169 x10^3/uL (130-400); RED BLOOD COUNT 3.74 x10^6/uL (4.38-5.82); RED CELL DISTRIBUTION WIDTH 15.3 % (9.4-14.8)
[2020-03-24] MEDS ORDERED: ONDANSETRON 2MG/ML, 2ML ONE (21:28)
[2020-03-24] MEDS ORDERED: MORPHINE SULFATE 4 MG/ML, 1ML ONE (21:28)
[2020-03-24 21:30] LABS: ALANINE AMINOTRANSFERASE 10 U/L (12-78); ALBUMIN 3.1 g/dL (3.4-5.0); ANION GAP 4 mmol/L (5-15); CALCIUM 8.4 mg/dL (8.5-10.1); CHLORIDE 107 mmol/L (98-107); CREATININE 1.44 mg/dL (0.7-1.3)
[2020-03-24] MEDS ORDERED: ONDANSETRON 2MG/ML, 2ML IVPush ONE (21:30)
[2020-03-24] MEDS ORDERED: MORPHINE SULFATE 4 MG/ML, 1ML IVPush PRN (21:30)
[2020-03-24] MEDS ORDERED: POLYETHYLENE GLYCOL 17 GM PACKET PO PRN ×2 (21:30→22:00)
[2020-03-24 21:32] LABS: ALKALINE PHOSPHATASE 86 U/L (45-117); BILIRUBIN,TOTAL 0.4 mg/dL (0.2-1.0); TOTAL PROTEIN 6.4 g/dL (6.4-8.2)
[2020-03-24 21:45] LABS: MICROSCOPIC NOT IND
[2020-03-24] MEDS ORDERED: ONDANSETRON ODT 4 MG PO PRN (22:00)
[2020-03-24] MEDS: SODIUM CHLORIDE FLUSH 10ML SYR IVF SCH (22:00)
[2020-03-24] MEDS ORDERED: BISACODYL 10 MG SUPP PR PRN (22:00)
--- NOTE | 2020-03-24 22:12 | NUR ---
report called to Sree RIOS to assume care upon transfer to [facility]
[2020-03-24] MEDS: ACETAMINOPHEN 500 MG TABLET PO PRN (22:52)
[2020-03-24] MEDS: IBUPROFEN 600 MG TABLET PO PRN (22:52)
[2020-03-24] MEDS: OXYcodone IR 5MG TABLET PO PRN (22:52)
[2020-03-25 00:32] VITALS: BP 95/62
[2020-03-25] MEDS: ACETAMINOPHEN 500 MG TABLET PO PRN (06:26)
[2020-03-25] MEDS: IBUPROFEN 600 MG TABLET PO PRN (06:26)
[2020-03-25] MEDS: OXYcodone IR 5MG TABLET PO PRN (06:26)
[2020-03-25] MEDS ORDERED: OMEPRAZOLE 20 MG CAPSULE.DR PO SCH (07:30)
[2020-03-25] MEDS ORDERED: IBUP-1222 PO (07:35)
[2020-03-25] MEDS ORDERED: OXYC5TAB3 PO (07:35)
[2020-03-25 07:40] VITALS: BP 106/62
[2020-03-25] MEDS: SODIUM CHLORIDE FLUSH 10ML SYR IVF SCH (08:18)
[2020-03-25] MEDS ORDERED: MIRABEGRON 25 MG HOMEMEDPO SCH (09:00)
[2020-03-25] MEDS ORDERED: SENNA/DOCUSATE TABLET PO SCH (09:00)
[2020-03-25] MEDS ORDERED: TRAZODONE 150MG TABLET PO SCH (09:00)
== END 2020-03-25 09:30 | disposition home or self-care (01) ==
LOC: ED 21:13 → 4NE 22:35 → INTOOBSV 22:35 → DCLOUNGE 03-25 09:19
PROVIDERS: ADMIT Internal Medicine; ATTEND Family Medicine
DX: T84.84XA Pain due to internal orthopedic prosthetic devices, implants and grafts, initial encounter (principal); N18.3 Chronic kidney disease, stage 3 (moderate); D63.1 Anemia in chronic kidney disease; K21.9 Gastro-esophageal reflux disease without esophagitis; M51.36 Other intervertebral disc degeneration, lumbar region; Z79.899 Other long term (current) drug therapy; Z96.641 Presence of right artificial hip joint
CPT/HCPCS: 36415; 71045; 80053; 81003; 85025; 93005; 96374; 96375; 97161; 99285; G0378; J2270; J2405

== ENCOUNTER 2020-12-09 01:23 | Emergency (ER) | payer MEDICARE, OTHER ==
[~2020-12-09] VITALS: Ht 172.7 cm; Wt 90.9 kg
[~2020-12-09 01:23] MED LIST changes: +HYDR-2214 PO; -HYDR-3240 PO; +IBUP-1222 PO; +MIRA25TA PO; +OXYC5TAB98 PO; +TRAZ150T62 PO
--- NOTE | 2020-12-09 01:38 | NUR ---
BILAT NECK PAIN (CHRONIC) DENIES TRAUMA. STARTING TWO DAYS AGO, [place]. EMS REPORTED MONGE 15, GAVE 100 FENT, BS 145, GAVE 300 NS.PT IN BED IN GOWN WITH CONT SPO2, BP Q 30 MIN, SIDE RAILS UP X2, CALL LIGHT IN RECH. MD AT BEDSIDE.
[2020-12-09] MEDS ORDERED: METHOCARBAMOL 750 MG TABLET ONE (01:52)
[2020-12-09] MEDS ORDERED: METHOCARBAMOL 750 MG TABLET PO ONE (02:00)
[2020-12-09] MEDS ORDERED: MORPHINE SULFATE 4 MG/ML, 1ML IVPush ONE (02:00)
[2020-12-09 02:33] VITALS: BP 110/65
== END 2020-12-09 02:35 | disposition home or self-care (01) ==
LOC: ED 02:00
DX: S16.1XXA Strain of muscle, fascia and tendon at neck level, initial encounter (principal); X58.XXXA Exposure to other specified factors, initial encounter; Y93.89 Activity, other specified; Y92.89 Other specified places as the place of occurrence of the external cause; Y99.8 Other external cause status
CPT/HCPCS: 99283

== ENCOUNTER 2021-01-07 18:31 | Emergency (ER) | payer MEDICARE ==
[~2021-01-07] VITALS: Ht 175.3 cm; Wt 80.0 kg
--- NOTE | 2021-01-07 18:38 | NUR ---
PT BIBA FROM HOME FOR C/O BILATERAL KNEE PAIN. PT C/O LEFT KNEE PAIN WORSE. PT RECEIVED SPINAL IMPLANT 2 WEEKS AGO. PT FELT HE COULD RUN D/T DECREASED PAIN, SWELLING STARTED 1 WEEK AGO. PT CHANGED INTO GOWN, MONITORS IN PLACE. CALL LIGHT WITHIN REACH. AT BS.
--- NOTE | 2021-01-07 18:53 | NUR ---
REPORT TO GABRIEL MELENDEZ
[2021-01-07] MEDS ORDERED: LIDOCAINE-MPF 1%, 5ML ONE (19:50)
[2021-01-07] MEDS ORDERED: LIDOCAINE 1%, 10ML INFIL ONE (20:00)
[2021-01-07] MEDS ORDERED: KETOROLAC 60 MG/2 ML IM ONE (23:00)
[2021-01-07] MEDS ORDERED: KETOROLAC 60 MG/2 ML ONE (23:01)
[2021-01-07 23:29] VITALS: BP 144/84
== END 2021-01-07 23:31 | disposition home or self-care (01) ==
LOC: ED 19:23
DX: Z02.9 Encounter for administrative examinations, unspecified (principal)
CPT/HCPCS: 82945; 83615; 84157; 84560; 85810; 87070; 87205; 89050; 89060; 96372; 99283; J1885

== ENCOUNTER 2021-01-07 18:33 | Emergency (ER) | payer MEDICARE ==
[2021-01-07 19:28] LABS: HCT (SEDRATE) 37.6 % (39.2-51.8)
[2021-01-07 19:29] LABS: ANION GAP 8 mmol/L (5-15); BASOPHILS % (AUTO) 0 % (0-1); CALCIUM 8.9 mg/dL (8.5-10.1); CHLORIDE 107 mmol/L (98-107); CREATININE 1.43 mg/dL (0.7-1.3); EOSINOPHILS % (AUTO) 0 % (1-7); LYMPHOCYTES % (AUTO) 15 % (22-44); MEAN CORPUSCULAR HEMOGLOBIN 24.8 pg (27.5-34.5); MONOCYTES % (AUTO) 11 % (2-9); NEUTROPHILS % (AUTO) 74 % (42-75); PLATELET COUNT 254 x10^3/uL (130-400); RED BLOOD COUNT 4.92 x10^6/uL (4.38-5.82); RED CELL DISTRIBUTION WIDTH 17.1 % (9.4-14.8)
== END 2021-01-07 18:51 ==
LOC: ED 18:40
DX: M11.262 Other chondrocalcinosis, left knee (principal)
CPT/HCPCS: 20610; 36415; 73564; 80048; 82040; 82945; 83615; 84157; 84550; 84560; 85025; 85651; 85810; 86140; 87070; 87205; 89050; 89060; 96372; 99283; 99284; J1885